=== PATIENT | female | born 1950 | race Caucasian/White ===

== ENCOUNTER 2021-03-11 07:12 | Day surgery (SDC) | payer MEDICARE, OTHER ==
[~2021-03-11] VITALS: Ht 157.5 cm; Wt 54.5 kg
[~2021-03-11 07:12] MED LIST: ASPIRIN 325 MG TABLET PO ONE; SODIUM CHLORIDE 0.9% 1,000 ML IV ONE; SODIUM CHLORIDE 0.9% 1,000 ML ONE
[2021-03-11 07:58] LABS: COVID AG,FIA SOURCE NASOPHARYNGEAL
[2021-03-11] MEDS ORDERED: SODIUM CHLORIDE 0.9% 1,000 ML ONE (08:07)
[2021-03-11] MEDS ORDERED: SODIUM BICARBONATE 50 MEQ/50 ML VIAL ONE (08:57)
[2021-03-11] MEDS ORDERED: LIDOCAINE/PF 1% 30 ML VIAL ONE (08:57)
[2021-03-11] MEDS ORDERED: IOHEXOL 300 MG/ML 50 ML VIAL ONE (08:57)
[2021-03-11] MEDS ORDERED: IOHEXOL 300 MG/ML 150 ML VIAL ONE ×2 (08:58→10:02)
[2021-03-11] MEDS ORDERED: HEPARIN SODIUM 1000 UNITS/NS 1,000 ML ONE (08:58)
[2021-03-11] MEDS ORDERED: IOHEXOL 300 MG/ML 100 ML VIAL ONE (08:58)
[2021-03-11 09:23] VITALS: BP 143/68
[2021-03-11] MEDS ORDERED: FentaNYL CITRATE PF 100 MCG/2 ML VIAL ONE (09:24)
[2021-03-11] MEDS ORDERED: MIDAZOLAM HCL 2 MG/2 ML VIAL ONE (09:24)
[2021-03-11] MEDS ORDERED: LIDOCAINE 1% 30 ML/SOD BICARB 8.4% 4 ML SQ ONE (09:45)
[2021-03-11] MEDS ORDERED: HEPARIN SODIUM 1000 UNITS/NS 1,000 ML IARTER ONE (09:45)
[2021-03-11] MEDS ORDERED: IOHEXOL 300 MG/ML 150 ML VIAL IARTER ONE (09:45)
[2021-03-11] MEDS ORDERED: MIDAZOLAM HCL 2 MG/2 ML VIAL IVP ONE ×2 (09:45)
[2021-03-11] MEDS ORDERED: FentaNYL CITRATE PF 100 MCG/2 ML VIAL IVP ONE ×2 (09:45)
[2021-03-11] MEDS ORDERED: HEPARIN SODIUM,PORCINE 5,000 UNITS/ML VIAL IVP ONE ×2 (10:00→10:15)
[2021-03-11] MEDS ORDERED: TICAGRELOR 90 MG TABLET ONE (10:43)
[2021-03-11] MEDS ORDERED: TICAGRELOR 90 MG TABLET PO ONE (11:00)
== END 2021-03-11 17:25 | disposition home or self-care (01) ==
LOC: CATHLAB 07:12
PROVIDERS: ATTEND Specialist
DX: I25.110 Atherosclerotic heart disease of native coronary artery with unstable angina pectoris (principal); T82.855A Stenosis of coronary artery stent, initial encounter; E11.9 Type 2 diabetes mellitus without complications; I10 Essential (primary) hypertension; I25.2 Old myocardial infarction; Z88.8 Allergy status to other drugs, medicaments and biological substances; Z79.01 Long term (current) use of anticoagulants; Y83.8 Other surgical procedures as the cause of abnormal reaction of the patient, or of later complication, without mention of misadventure at the time of the procedure; Z98.890 Other specified postprocedural states; Z90.49 Acquired absence of other specified parts of digestive tract; Z79.82 Long term (current) use of aspirin
CPT/HCPCS: 87426; 93005; 93459; 99152; 99153; C1760; C1874; C1887; C9600; C9803; J1644; J2250; J3010; J3490 ×2; J7030; Q9967 ×3; 37236; 92920; 92921; 92928